=== PATIENT | female | born 1980 | race Two or more races ===

== ENCOUNTER 2017-12-25 20:42 | Emergency (ER) | payer MEDICAID ==
[~2017-12-25] VITALS: Ht 167.6 cm; Wt 67.1 kg
[~2017-12-25 20:42] MED LIST: SYNTHROID150 MCG PO
[2017-12-25] MEDS ORDERED: CYTOMEL5 MCG ORAL (20:48)
[2017-12-25 20:55] VITALS: BP 98/65
[2017-12-25] MEDS ORDERED: AMOXICILLIN500 MG ORAL (21:46)
[2017-12-25] MEDS ORDERED: TYLENOL EXTRA500 MG ORAL (21:46)
[2017-12-25 21:57] VITALS: BP 0/0
--- NOTE | 2017-12-26 01:53 | Emergency Room Report ---
History of Present Illness General Chief Complaint: Upper Respiratory Illness Source: Patient Present Illness HPI 37-year-old female presents ED complaining of throat pain, fever, body aches 2 days. Notes fever at home however afebrile here. Pain is dull, 8 out of 10, nonradiating. Denies cough. Denies sick contacts or recent travel. No other aggravating relieving factors. Denies any other associated symptoms Allergies: Coded Allergies: No Known Allergies (Unverified , 07/21/12) Patient History Past Medical History: none Past Surgical History: none Pertinent Family History: none Social History: Denies: smoking, alcohol use, drug use Last Menstrual Period: 10/20/17 Now: No - denies Immunizations: UTD Reviewed Nursing Documentation: PMH: Agreed; PSxH: Agreed Review of Systems All Other Systems: negative except mentioned in HPI Physical Exam Vital Signs Date Time Temp Pulse Resp B/P (MAP) Pulse Ox O2 Delivery O2 Flow Rate FiO2 12/25/17 20:45 99.6 119 18 98/65 98 Room Air 99.7 Sp02 EP Interpretation: reviewed, normal General Appearance: no apparent distress, alert, GCS 15, non-toxic Head: normocephalic Eyes: bilateral eye normal inspection, bilateral eye PERRL ENT: hearing grossly normal, normal voice, TMs + canals normal, pharyngeal erythema Neck: normal inspection Respiratory: chest non-tender, lungs clear, normal breath sounds, speaking full sentences Cardiovascular #1: regular rate, rhythm, no edema Gastrointestinal: normal inspection Rectal: deferred Genitourinary: no CVA tenderness Musculoskeletal: back normal, gait/station normal, normal range of motion, non- tender Neurologic: alert, oriented x3, responsive, motor strength/tone normal, sensory intact, speech normal Psychiatric: normal inspection Skin: normal inspection Lymphatic: normal inspection Medical Decision Making Diagnostic Impression: Primary Impression: Pharyngitis Qualified Codes: J02.9 - Acute pharyngitis, unspecified ER Course Hospital Course 37-year-old female presents to ED complaining of sore throat + fever Differential diagnoses include: URI, pharyngitis, otitis media Clinical course Patient placed on stretcher. After initial history, physical exam reveals a female in no acute distress. Bilateral TM unremarkable. There is pharyngeal erythema. Noted lymphadenopathy. Clinical findings consistent with pharyngitis. given tylenol, amoxicillin in ED Diagnosis - pharyngitis Stable and discharged home with prescriptions for Tylenol, amoxicillin. Instructed to followup with PMD. return to ED if symptoms recur or worsen Last Vital Signs Date Time Temp Pulse Resp B/P (MAP) Pulse Ox O2 Delivery O2 Flow Rate FiO2 12/25/17 21:57 0/0 12/25/17 20:55 119 18 Room Air 12/25/17 20:55 99.7 98 99.7 Status: improved Disposition: HOME, SELF-CARE Condition: Stable Scripts Acetaminophen* (TYLENOL EXTRA STRENGTH*) 500 Mg Tablet 500 MG ORAL Q8H PRN for Prn Headache/Temp > 101, #30 TAB 0 Refills Prov: Guilherme Cline MD 12/25/17 Amoxicillin* (AMOXIL*) 500 Mg Capsule 500 MG ORAL THREE TIMES A DAY, #21 CAP Prov: Guilherme Cline MD 12/25/17 Patient Instructions: Pharyngitis, [id number] Guilherme Cline MD Dec 26, 2017 01:53
== END 2017-12-25 21:57 | disposition home or self-care (01) ==
LOC: EMR 21:21
DX: J06.9 Acute upper respiratory infection, unspecified (principal)
CPT/HCPCS: 99284

== ENCOUNTER 2018-01-12 14:42 | Emergency (ER) | payer MEDICAID ==
[~2018-01-12] VITALS: Ht 167.6 cm; Wt 65.8 kg
[~2018-01-12 14:42] MED LIST changes: +AMOXICILLIN500 MG ORAL; +CYTOMEL5 MCG ORAL; +TYLENOL EXTRA500 MG ORAL
[2018-01-12 14:55] VITALS: BP 111/71
--- NOTE | 2018-01-12 15:03 | Emergency Room Report ---
History of Present Illness General Chief Complaint: Sore Throat Source: Patient, Medical Record Present Illness HPI 37-year-old female presents emergency department complaining of 8 out of 10 in severity sore throat since last night. Patient reports that she has been having some fatigue 2 days with subjective fevers and chills. Patient also reports that she is noticing some white spots on back of her throat. Patient states that she has 2 children both of which have been Sick lately. Patient states she is up-to-date with vaccinations she denies recent travel.Denies ear pain, high fevers, lethargy, neck pain/stiffness, irritability, photophobia dehydration, N/V/D. Denies Cp, Palpitations, LOC, AMS, seizures, paresthesias, or changes in Hearing or vision, no Sudden severe ALFARO. Denies hx of smoking, asthma or COPD. Allergies: Coded Allergies: No Known Allergies (Unverified , 07/21/12) Patient History Past Medical History: see triage record Past Surgical History: none Pertinent Family History: none Last Menstrual Period: 01/06/18 Now: No Reviewed Nursing Documentation: PMH: Agreed; PSxH: Agreed Nursing Documentation-PMH Past Medical History: No History, Except For Review of Systems All Other Systems: negative except mentioned in HPI Physical Exam Vital Signs Date Time Temp Pulse Resp B/P (MAP) Pulse Ox O2 Delivery O2 Flow Rate FiO2 01/12/18 14:45 98.3 109 18 111/71 96 Room Air 98.2 Sp02 EP Interpretation: reviewed, normal General Appearance: no apparent distress, alert, GCS 15, non-toxic Head: normocephalic, atraumatic Eyes: bilateral eye normal inspection, bilateral eye PERRL ENT: hearing grossly normal, normal voice, TMs + canals normal, uvula midline, moist mucus membranes, nasal congestion, tonsillar swelling, pharyngeal erythema , tonsillar exudate Neck: full range of motion Respiratory: lungs clear, normal breath sounds, no wheezing, speaking full sentences Cardiovascular #1: regular rate, rhythm, no edema Musculoskeletal: back normal, gait/station normal, normal range of motion, non- tender Neurologic: alert, oriented x3, responsive, motor strength/tone normal, sensory intact, speech normal, grossly normal Psychiatric: judgement/insight normal Skin: normal color, no rash, warm/dry, well hydrated Lymphatic: no adenopathy Medical Decision Making PA Attestation Dr. Mckeon is my supervising Physician whom patient management has been discussed with. Diagnostic Impression: Primary Impression: Pharyngitis Qualified Codes: J02.0 - Streptococcal pharyngitis ER Course 37-year-old female presents emergency department complaining of 8 out of 10 in severity sore throat since last night. Patient reports that she has been having some fatigue 2 days with subjective fevers and chills. Patient also reports that she is noticing some white spots on back of her throat. Patient states that she has 2 children both of which have been Sick lately. Patient states she is up-to-date with vaccinations she denies recent travel.Denies ear pain, high fevers, lethargy, neck pain/stiffness, irritability, photophobia dehydration, N/V/D. Denies Cp, Palpitations, LOC, AMS, seizures, paresthesias, or changes in Hearing or vision, no Sudden severe ALFARO. Denies hx of smoking, asthma or COPD. Ddx considered but are not limited to: pharyngitis, strep, HAND BOX COVERER, ludwigs angina, URI Vital signs: are WNL, pt. is afebrile H&PE are most consistent with: pharyngitis presumed strep. ORDERS: None required at this time as the diagnosis is clinical ED INTERVENTIONS: none required at this time. DISCHARGE: At this time pt. is stable for d/c to home. Will provide printed patient care instructions, and any necessary prescriptions. Care plan and follow up instructions have been discussed with the patient prior to discharge. Last Vital Signs Date Time Temp Pulse Resp B/P (MAP) Pulse Ox O2 Delivery O2 Flow Rate FiO2 01/12/18 14:55 98.2 18 111/71 96 Room Air 98.2 01/12/18 14:45 109 Disposition: HOME, SELF-CARE Condition: Stable Patient Instructions: Strep Throat Additional Instructions: Take medications as directed. Follow up with a Primary Care Provider in 3-5 days, even if your symptoms have resolved. --Please review list of primary care clinics, if you do not already have a primary care provider Return sooner to ED if new symptoms occur, or current symptoms become worse. - Please note that this Emergency Department Report was dictated using [employer] technology software, occasionally this can lead to erroneous entry secondary to interpretation by the dictation equipment. Olena Nguyễn Jan 12, 2018 15:03
[2018-01-12] MEDS ORDERED: AUGMENTIN 875-1 EAC1 ORAL (15:05)
[2018-01-12] MEDS ORDERED: LIDOCAINE VISC100 ML ORAL (15:05)
[2018-01-12 15:15] VITALS: BP 111/71
== END 2018-01-12 15:15 | disposition home or self-care (01) ==
LOC: EMR 15:06
DX: J02.0 Streptococcal pharyngitis (principal)
CPT/HCPCS: 99283